=== PATIENT | male | born 1940 | race Caucasian/White ===

== ENCOUNTER 2018-02-05 06:50 | Day surgery (SDC) | payer OTHER ==
[2018-02-04 09:49] VITALS: BMI 28.9
[2018-02-05] MEDS ORDERED: PROPOFOL 20 ML ONE ×4 (07:48)
[2018-02-05] MEDS ORDERED: LIDOCAINE HCL/PF 2% SDV 5ML VIAL ONE (07:48)
[2018-02-05] MEDS ORDERED: SUCCINYLCHOLINE CHLORIDE 200 MG/10 ML VIAL ONE (07:48)
[2018-02-05 09:53] VITALS: BP 124/59; PULSE 54; TEMP 98.4
--- NOTE | 2018-02-08 11:08 | PATH ---
Surgical Pathology Report Patient Name: VIJAY AVALOS [facility]. Rec. #: [id number] /Age/Gender: 1940 (Age: 77) / M Account: [id number] Location: U-ENDOSCOPY Taken: 02/05/2018 Received: 02/05/2018 Reported: 02/08/2018 Physicians: Prashant Carballo M.D. Specimen(s) Received A: BX DUODENUM B: BX ANTRUM C: BX GASTRIC BODY POLYP D: BX PROXIMAL TRANSVERSE COLON POLYP Clinical History Anemia, colon cancer screening, rule out ulcer Duodenal AVM, gastric polyp, diverticulosis and colon polyp Final Diagnosis A. DUODENUM, SECOND PORTION AND BULB, BIOPSY: DUODENAL MUCOSA WITH NO PATHOLOGIC CHANGES. NO HISTOLOGIC EVIDENCE OF GLUTEN SENSITIVE ENTEROPATHY (CELIAC SPRUE) IDENTIFIED. B. STOMACH, ANTRUM, BIOPSY: MILD TO MODERATE CHRONIC GASTRITIS. IMMUNOSTAIN FOR H. PYLORI IS NEGATIVE. C. 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 NO DYSPLASIA IDENTIFIED. IMMUNOSTAIN FOR H. PYLORI IS NEGATIVE. D. COLON, PROXIMAL TRANSVERSE, BIOPSY: TUBULAR ADENOMA. Electronically Signed Franck Amin M.D. Gross Description A. Received in formalin, labeled "biopsy second portion duodenum and duodenal bulb" are 4 zavala, irregular portions of soft tissue measuring 0.2 cm. in greatest dimension. The specimens are submitted in toto in one cassette. B. Received in formalin, labeled "antrum" are multiple zavala, irregular portions of soft tissue measuring 0.2 cm. in greatest dimension. The specimens are submitted in toto in one cassette. C. Received in formalin, labeled "biopsy gastric body polyp" is a zavala, irregular portion of soft tissue measuring 0.2 cm. in greatest dimension. The specimen is submitted in toto in one cassette. D. Received in formalin, labeled "biopsy proximal transverse colon polyp" are 2 zavala, irregular portions of soft tissue measuring 0.2-0.3 cm. in greatest dimension. The specimens are submitted in toto in one cassette. [facility]/02/05/2018 [facility]/02/05/2018
== END 2018-02-05 09:53 | disposition home or self-care (01) ==
LOC: JASU-ENDO 06:50
PROVIDERS: ATTEND Internal Medicine Gastroenterology
PROC: 0DB98ZX Excision of Duodenum, Via Natural or Artificial Opening Endoscopic, Diagnostic (ICD-10-PCS; 2018-02-05)
PROC: 0DB68ZX Excision of Stomach, Via Natural or Artificial Opening Endoscopic, Diagnostic (ICD-10-PCS; 2018-02-05)
PROC: 0DBL8ZX Excision of Transverse Colon, Via Natural or Artificial Opening Endoscopic, Diagnostic (ICD-10-PCS; principal; 2018-02-05 08:00)
DX: D50.9 Iron deficiency anemia, unspecified (principal); K31.7 Polyp of stomach and duodenum; K31.819 Angiodysplasia of stomach and duodenum without bleeding; D12.3 Benign neoplasm of transverse colon; K64.8 Other hemorrhoids; K57.30 Diverticulosis of large intestine without perforation or abscess without bleeding; K55.20 Angiodysplasia of colon without hemorrhage
CPT/HCPCS: 88305-TC; 88342-TC

== ENCOUNTER 2024-12-13 04:17 | Day surgery (SDC) | payer OTHER ==
[2024-12-08 16:51] VITALS: BMI 25.4
[2024-12-13] MEDS ORDERED: BOTULINUM TOXIN A 100 UNITS VIAL NR SCH (07:15)
[2024-12-13] MEDS ORDERED: BOTULINUM TOXIN A 100 UNITS VIAL IM SCH (07:15)
[2024-12-13] MEDS ORDERED: DEXTROSE 5%-0.45% SALINE 1,000 ML IV SCH (08:00)
[2024-12-13] MEDS: ceFAZolin SODIUM 1 GM VIAL IVPB ONE (08:05)
[2024-12-13] MEDS: ONABOTULINUMTOXINA 200 UNIT/VIAL VIAL IM ONE (08:10)
[2024-12-13] MEDS ORDERED: LACTATED RINGERS SOLUTION 1,000 ML IV SCH ×2 (09:30→11:00)
[2024-12-13] MEDS ORDERED: PROMETHAZINE HCL 25 MG/1 ML VIAL IVPB PRN (10:50)
[2024-12-13] MEDS ORDERED: oxyCODONE HCL 5 MG TABLET PO PRN ×2 (10:50)
[2024-12-13] MEDS ORDERED: ONDANSETRON 4 MG/2 ML VIAL IVPUSH PRN (10:50)
[2024-12-13 13:00] VITALS: BP 171/78; PULSE 56; RESP 16; TEMP 97.8
== END 2024-12-13 10:25 | disposition home or self-care (01) ==
LOC: JASU-SURG 04:17
PROVIDERS: ATTEND Urology
PROC: 3E0K8GC Introduction of Other Therapeutic Substance into Genitourinary Tract, Via Natural or Artificial Opening Endoscopic (ICD-10-PCS; principal; 2024-12-13 08:00)
DX: N32.81 Overactive bladder (principal); N39.41 Urge incontinence
CPT/HCPCS: 94760; J0585